=== PATIENT | female | born 1980 | race Two or more races ===

== ENCOUNTER → 2025-04-20 | Day surgery (SDC) | payer MEDICAID ==
[2025-04-17 11:08] LABS: Hematocrit 33.5 % (36.0-46.0); Hemoglobin 10.4 g/dL (12.2-16.2); Mean Corpuscular Hemoglobin 20.0 pg (28.0-32.0); Mean Corpuscular Volume 64.5 fL (80.0-100.0); Nucleated Red Blood Cells % 0.1 %
[2025-04-17 11:15] LABS: INR 0.92 (0.9-1.15); Partial Thromboplastin Time 27.6 SEC (24.5-34.5); Prothrombin Time 9.8 sec (9.3-11.8)
[2025-04-17 11:54] LABS: Urine Protein, UAD TRACE (Negative)
[2025-04-17 11:58] LABS: Alanine Aminotransferase 13 U/L (7-40); Albumin 4.5 g/dL (3.2-4.8); Alkaline Phosphatase 77 U/L (46-116); Anion Gap 6 (5-15); BUN/Creatinine Ratio 10.6 (10.0-20.0); Blood Urea Nitrogen 10 mg/dL (9-23); Calcium 9.8 mg/dL (8.7-10.4); Carbon Dioxide 27 mmol/L (20-31); Chloride 105 mmol/L (98-107); Glucose 98 mg/dL (74-106); Potassium 4.1 mmol/L (3.5-5.1); Sodium 138 mmol/L (136-145); Total Protein 6.8 g/dL (5.7-8.2)
[2025-04-17 11:59] LABS: Bilirubin, Total 0.4 mg/dL (0.2-1.0)
[~2025-04-20] VITALS: Ht 154.9 cm; Wt 99.8 kg
[~2025-04-20] MED LIST: ACET-1304 PO; ACETAMINOPHEN 500 MG TAB or CAP PO ONE; AMLO1TAB21 PO; CLON0.2T PO; DICY20TA PO; FERR-7 PO; IBUP200T76 PO; KETAMINE 50mg/ML 1ml syringe ONE; LIDOCAINE VISCOUS 2% 15ML UD ONE; MIDAZOLAM HCL 2MG/2ML 2ml VIAL (1mg/ml) ONE; NAP500T PO; PANT40TA2 PO; PROPOFOL 10 MG/ML 20 ML IV ONE; fentaNYL CITRATE 100 MCG/2 ML VL ONE
--- NOTE | 2025-04-20 11:36 | DVHHP2 ---
GI H&P Pre-Op Assessment Date: 04/20/25 Chief complaint: colon cancer screening, upper abdominal pain, nausea and melena HPI: per clinic note Past medical history: per clinic note Past surgical history: per clinic note Family history: per clinic note Physical exam: General: NAD, AAOX3 HEENT: PERRL, no scleral icterus, normal hearing, gums without lesions or bleeding, oropharynx clear without erythema or exudate. Neck: Supple without enlargement of the thyroid, or lymphadenopathy. Chest: Normal size and shape, no tenderness, lung barker clear to auscultation and percussion, nonlabored breathing. Heart: RRR, no murmur Abdomen: non-distended, no tenderness to palpation, +BS, no hepatosplenomegaly Extremities: no edema Neurological: CN II-XII intact, sensation intact in all extremities, 5+ strength in all extremities Skin: No rashes, No jaundice Assessment: - colon cancer screening, upper abdominal pain, nausea and melena Plan: - EGD - Colonoscopy - Risks (bleeding, infection, perforation, reaction to sedation medications and cardiopulmonary arrest) and benefit of the procedure were explained to patient. Patient agrees to undergo the procedure. BENEDICT SANFORD MD Apr 20, 2025 11:36
--- NOTE | 2025-04-20 11:37 | DVHOP2 ---
Operative Report DATE OF OPERATION: 04/20/25 PROCEDURE: Upper Endoscopy. PREOPERATIVE INDICATION: The patient is a 44 -year-old female undergoing endoscopy for upper abdominal pain, nausea and melena. POSTOPERATIVE DIAGNOSES: 1. Normal EGD PROCEDURE PERFORMED BY: Wang North SCOPE: Olympus videoendoscope. ASA CLASS: 3 PREOPERATIVE MEDICATIONS: MAC with Dr Dozier PROCEDURE IN DETAIL: After obtaining an informed consent, the patient was placed on left lateral decubitus position. The patient was then sedated with the above medications. A bite block was placed between her teeth. The endoscope was then passed through the oropharynx, into the esophagus, and through the stomach and pylorus up to the second and third part of the duodenum. The duodenum was normal appearance. The stomach was normal in appearance. Gastric biopsies were obtained using cold forceps. The GE junction was normal in appearance at 40 cm. The esophagus was normal in appearance. The endoscope was then withdrawn. The patient tolerated the procedure well without difficulty. COMPLICATIONS : None SPECIMENS: Gastric biopsies DISPOSITION: D/C to home PLAN: 1. Await for biopsy result WANG NORTH MD Apr 20, 2025 11:37
--- NOTE | 2025-04-20 11:38 | DVHOP2 ---
Operative Report DATE OF OPERATION: 04/20/25 PROCEDURE: Colonoscopy. PREOPERATIVE INDICATION: The patient is a 44 -year-old female with family history of colon cancer undergoing colonoscopy for colon cancer screening. POSTOPERATIVE DIAGNOSES: 1. Normal colonoscopy PROCEDURE PERFORMED BY: Wang North M.D. SCOPE: Olympus videocolonoscope. ASA CLASS: 3 PREOPERATIVE MEDICATIONS: MAC with Dr Dozier PROCEDURE IN DETAIL: After obtaining an informed consent, the patient was placed on left lateral decubitus position. She was then sedated with the above medications. A rectal examination was performed that was normal. The colonoscope was then passed through the anus into the rectosigmoid and through the descending, transverse, and ascending colon up to the cecum with visualization of the appendiceal orifice, base of the cecum and the ileocecal valve. No mass or polyp was observed. The colonoscope was then withdrawn. The patient tolerated the procedure well without difficulty. WITHDRAWAL TIME: 6 minutes QUALITY OF THE PREP: [place] Bowel Prep score: 7 COMPLICATIONS : None SPECIMENS: None DISPOSITION: D/C to home PLAN: 1. Repeat colonoscopy in five years for colon cancer screening. WANG NORTH MD Apr 20, 2025 11:38
--- NOTE | 2025-04-20 11:39 | DVHDS2 ---
Physician Discharge Progress N Final Diagnosis: Normal EGD Normal colonoscopy Operations or Procedures: Operations or Procedures EGD with biopsy Colonoscopy Condition on Discharge: Good Disposition: Home Discharge Instructions: Diet: Regular Activity: No Restrictions, As Tolerated Medications: Resume with previous home medications Follow Up Care: Discharge Statement: "Patient was advised to return to the ER or call 911 if any headaches, dizziness, shortness of breath, chest pain, abdominal pain, bleeding, fevers, or worsening of medical condition. Patient was counseled about treatment plan, medications, possible side effects, patientverbalized understanding. All questions were answered to the best of my ability. This discharge took greater then 30 minutes in planning, reviewing documentation, counseling the patient, and discussing with other team members." BENEDICT SANFORD MD Apr 20, 2025 11:39
[2025-04-20 11:45] VITALS: PULSE 80; RESP 12; O2SAT 100
[2025-04-20 12:16] VITALS: TEMP 98.5
[2025-04-20] MEDS: ACETAMINOPHEN 500 MG TAB or CAP PO ONE (12:16)
[2025-04-20 12:40] VITALS: BP 153/75; PULSE 68; RESP 14; O2SAT 97
== END | disposition home or self-care (01) ==
LOC: GI 10:22
PROVIDERS: ATTEND Internal Medicine Gastroenterology
DX: K92.1 Melena (principal); R10.11 Right upper quadrant pain; R11.0 Nausea; E66.01 Morbid (severe) obesity due to excess calories; I10 Essential (primary) hypertension; Z86.2 Personal history of diseases of the blood and blood-forming organs and certain disorders involving the immune mechanism; Z98.890 Other specified postprocedural states; Z68.41 Body mass index [BMI] 40.0-44.9, adult; Z79.899 Other long term (current) drug therapy
CPT/HCPCS: 36415; 43239; 45378; 80053; 81001; 84702; 85025; 85610; 85730; 88305; 88342; J1100; J2250; J2704; J3010; J7030